=== PATIENT | male | born 2000 | race Two or more races ===

== ENCOUNTER 2021-05-30 11:46 | Emergency (ER) | payer OTHER ==
[~2021-05-30] VITALS: Ht 180.3 cm; Wt 59.0 kg
[2021-05-30 12:10] VITALS: BP 107/67
[2021-05-30] MEDS ORDERED: CIPR5DRO RIGHTEYE (12:34)
--- NOTE | 2021-05-30 12:58 | NUR ---
Patient discharged to home in stable condition. Written and verbal after care instructions given. Patient verbalizes understanding of instruction.
== END 2021-05-30 12:58 | disposition home or self-care (01) ==
LOC: ER 11:46
DX: H02.842 Edema of right lower eyelid (principal)

== ENCOUNTER 2021-12-24 23:32 | Emergency (ER) | payer OTHER ==
[~2021-12-24] VITALS: Ht 177.8 cm; Wt 61.2 kg
[~2021-12-24 23:32] MED LIST: CIPR5DRO RIGHTEYE
--- NOTE | 2021-12-25 00:30 | NUR ---
TO ER BED 2. BIBS C/O LEFT SIDED CP S/P WORKING OUT. PT IS ALERT AND ORIENTED. RR EVEN AND NON LABORED. CONNECTED TO MONITOR. AWAITING MD HART
[2021-12-25] MEDS ORDERED: NAPROXEN 250 MG TABLET ONE (00:44)
[2021-12-25] MEDS ORDERED: NAPROXEN 500 MG TABLET PO SCH (01:00)
[2021-12-25 01:22] LABS: BASOPHILS % (AUTO) 0.7 % (0.0-2.0); EOSINOPHILS % (AUTO) 2.1 % (0.0-6.0); HEMATOCRIT 39 % (39-51); HEMOGLOBIN 12.7 g/dL (13.5-17.5); LYMPHOCYTES # (AUTO) 2.9 K/uL (0.8-4.8); LYMPHOCYTES % (AUTO) 48.9 % (20.0-44.0); MEAN CORPUSCULAR HGB CONC 33 g/dl (31.0-36.0); MEAN CORPUSCULAR VOLUME 94 fL (80-96); MONOCYTES # (AUTO) 0.5 K/uL (0.1-1.30); NEUTROPHILS # (AUTO) 2.3 K/uL (1.8-8.9); NEUTROPHILS % (AUTO) 39.3 % (43.0-81.0); PLATELET COUNT (AUTO) 267 K/uL (150-450); RED BLOOD CELL COUNT(AUTO) 4.18 MIL/uL (4.5-6.0)
[2021-12-25 01:38] LABS: CALCIUM, SERUM 8.8 mg/dL (8.5-10.1); CARBON DIOXIDE 29 mmol/L (21-32); CHLORIDE 106 mmol/L (98-107); CREATININE 0.9 mg/dL (0.6-1.3); GLUCOSE 105 mg/dL (74-106); POTASSIUM 3.5 mmol/L (3.5-5.1); SODIUM SERUM 141 mmol/L (136-145); UREA NITROGEN, BLOOD 17 mg/dL (7-18)
[2021-12-25 01:44] LABS: ALANINE AMINOTRANSFERASE 15 U/L (12-78); ALBUMIN 3.9 g/dL (3.4-5.0); ALKALINE PHOSPHATASE 68 U/L (46-116); ASPARTATE AMINOTRANSFERASE 19 U/L (15-37); BILIRUBIN,DIRECT 0.1 mg/dL (0.0-0.2); BILIRUBIN,TOTAL 0.3 mg/dL (0.2-1.0); TOTAL PROTEIN, SERUM 6.9 g/dL (6.4-8.2)
--- NOTE | 2021-12-25 02:14 | NUR ---
STREET [employer] ENGINEER AT PT'S BEDSIDE
--- NOTE | 2021-12-25 03:15 | NUR ---
LAB AT BEDSIDE
--- NOTE | 2021-12-25 04:29 | NUR ---
Patient discharged to home in stable condition. Written and verbal after care instructions given. Patient verbalizes understanding of instruction.
[2021-12-25 04:35] VITALS: BP 128/80
== END 2021-12-25 04:35 | disposition home or self-care (01) ==
LOC: ER 23:33
DX: R07.9 Chest pain, unspecified (principal); Z79.899 Other long term (current) drug therapy
CPT/HCPCS: 36415; 71045-TC; 80048-TC; 80076-TC; 84484-TC; 85025-TC; 85730-TC

== ENCOUNTER 2023-07-21 15:26 | Emergency (ER) | payer MEDICAID, OTHER ==
[~2023-07-21] VITALS: Ht 177.8 cm; Wt 68.9 kg
[2023-07-21 15:37] VITALS: BP 102/66; TEMP 98.2
[2023-07-21 16:15] VITALS: O2SAT 100
== END 2023-07-21 16:16 | disposition home or self-care (01) ==
LOC: ER 15:36
DX: M25.561 Pain in right knee (principal)
CPT/HCPCS: 73564-TC

== ENCOUNTER 2023-08-19 10:19 | Emergency (ER) | payer MEDICAID, OTHER ==
[~2023-08-19] VITALS: Ht 177.8 cm; Wt 68.0 kg
[2023-08-19] MEDS ORDERED: KETOROLAC TROMETHAMINE INJ 30 MG/ML VIAL ONE (10:54)
[2023-08-19] MEDS ORDERED: IBUP-1953 PO (11:00)
[2023-08-19] MEDS: KETOROLAC TROMETHAMINE INJ 30 MG/ML VIAL IM ONE (11:02)
[2023-08-19 11:22] VITALS: BP 119/64; TEMP 98.6; O2SAT 96
== END 2023-08-19 11:22 | disposition home or self-care (01) ==
LOC: ER 10:28
DX: M25.561 Pain in right knee (principal); F41.9 Anxiety disorder, unspecified
CPT/HCPCS: 99283; 96372; J1885